=== PATIENT | male | born 1960 | race Caucasian/White ===

== ENCOUNTER 2020-08-21 15:01 | Outpatient (CLI) | payer OTHER ==
--- NOTE | 2020-08-21 16:25 | Vascular Lab Report ---
DUPLEX DOPPLER LOWER EXTREMITY VEINS, RIGHT INDICATION: [id number] PAIN RT LOWER. TECHNIQUE: Duplex doppler imaging was performed through the veins of the right lower extremity using venous comp ression and other maneuvers. COMPARISON: No relevant prior imaging study available. FINDINGS: Right Common femoral vein: Negative. Right Superficial femoral vein: Negative. Right Popliteal vein: Negative. Right Calf veins: Negative. Additional findings: None.. IMPRESSION: Negative for DVT. Signer Name: Luis Mei MD Signed: 08/21/2020 4:24 PM Workstation Name: [id number]
== END 2020-08-21 15:02 | disposition home or self-care (01) ==
LOC: VAS 15:01
PROVIDERS: ATTEND Internal Medicine
DX: M79.661 Pain in right lower leg (principal)

== ENCOUNTER 2022-04-29 08:33 | Outpatient (CLI) | payer OTHER ==
[2022-04-29 12:45] LABS: Chol/HDL Ratio 7.75 %
== END 2022-04-29 08:34 | disposition home or self-care (01) ==
LOC: LABHHL 08:33
PROVIDERS: ATTEND Internal Medicine
DX: E11.9 Type 2 diabetes mellitus without complications (principal); E78.5 Hyperlipidemia, unspecified
CPT/HCPCS: 36415; 80061; 83036